=== PATIENT | male | born 1985 | race Two or more races ===

== ENCOUNTER 2020-10-27 14:00 | Outpatient (CLI) | payer OTHER ==
[2020-11-13] MEDS ORDERED: ADDERALL 20 MG20 MG PO (15:17)
[2020-11-13] MEDS ORDERED: VYVANSE30 MG PO (15:18)
[2020-11-13] MEDS ORDERED: CYTOMEL5 MCG PO (15:19)
[2020-11-13] MEDS ORDERED: WELLBUTRIN XL150 M1 PO (15:20)
[2020-11-13] MEDS ORDERED: [UNRECOGNIZED DRUG - CODE] PO (15:20)
== END 2020-10-27 14:08 | disposition home or self-care (01) ==
LOC: TOM 14:00
PROVIDERS: ATTEND Otolaryngology Otology & Neurotology
DX: J34.3 Hypertrophy of nasal turbinates (principal); J31.0 Chronic rhinitis

== ENCOUNTER 2020-11-17 08:13 | Day surgery (SDC) | payer OTHER ==
[~2020-11-17 08:13] MED LIST: ADDERALL 20 MG20 MG PO; CYTOMEL5 MCG PO; VYVANSE30 MG PO; WELLBUTRIN XL150 M1 PO; [UNRECOGNIZED DRUG - CODE] PO
[2020-11-17] MEDS ORDERED: BACTRIM DS TAB1 EACH PO (12:26)
== END 2020-11-17 16:45 | disposition home or self-care (01) ==
LOC: CIR.AMB 08:13
PROVIDERS: ATTEND Otolaryngology Otology & Neurotology
DX: J34.2 Deviated nasal septum (principal); J34.3 Hypertrophy of nasal turbinates; Z20.822 Contact with and (suspected) exposure to COVID-19